=== PATIENT | male | born 1935 | race Caucasian/White ===

== ENCOUNTER 2016-05-20 14:14 | Observation (INO) | payer MEDICARE, OTHER ==
[~2016-05-20] VITALS: Ht 185.4 cm; Wt 106.8 kg
[2016-05-20 15:03] LABS: BASOPHILS 0.3 % (0.0-2.0); EOSINOPHILS 1.1 % (0-7); HEMATOCRIT 36.8 % (42.0-54.0); HEMOGLOBIN 12.1 g/dL (13.5-17.5); IMMATURE GRANULOCYTES 0.1 % (0-5); LYMPHOCYTES 11.4 % (15-50); MCH 30.8 pg (26.0-34.0); MCHC 32.9 g/dL (31.0-37.0); MCV 93.6 fL (80.0-100.0); MEAN PLATELET VOLUME 10.8 fL (7.4-10.4); MONOCYTES 11.7 % (2-11); NEUTROPHILS 75.4 % (40-80); PLATELET COUNT 186 10x3/uL (130-400); RBC 3.93 10x6/uL (4.20-6.10); RDW 13.8 % (11.5-14.5); WBC 9.5 10x3/uL (4.8-10.8)
[2016-05-20 15:10] LABS: APTT 40.4 SECONDS (22.8-39.4); INR 1.58 (0.85-1.17); PROTIME 18.8 SECONDS (11.6-15.0)
[2016-05-20 15:14] LABS: ALBUMIN 3.1 g/dL (3.4-5.0); ALKALINE PHOSPHATASE 53 U/L (46-116); ALT (SGPT) 24 U/L (10-68); BILIRUBIN - TOTAL 0.65 mg/dL (0.2-1.3); CALC OSMOLALITY 277 mosm/kg (275-300); CALCIUM 8.6 mg/dL (8.5-10.1); CARBON DIOXIDE 31.5 mmol/L (21.0-32.0); CHLORIDE - SERUM 101 mmol/L (98-107); CREATININE - SERUM 0.9 mg/dL (0.6-1.3); GLUCOSE 105 mg/dL (74-106); POTASSIUM - SERUM 4.2 mmol/L (3.5-5.1); PROTEIN - SERUM 6.4 g/dL (6.4-8.2); SODIUM 139 mmol/L (136-145); UREA NITROGEN 12 mg/dL (7-18); eGFR NON AFRICAN AMERICAN 87 mL/min (90-120)
[2016-05-20 15:22] LABS: PRO BNP 858 pg/mL (0-450)
[2016-05-20] MEDS ORDERED: COUMADIN5 MG PO (16:44)
[2016-05-20] MEDS ORDERED: SYNTHROID88 MCG (16:44)
[2016-05-20] MEDS ORDERED: CARDURA4 MG (16:45)
[2016-05-20] MEDS ORDERED: LOPRESSOR25 MG PO ×2 (16:46→16:47)
[2016-05-20] MEDS ORDERED: BAYER CHEWABLE81 MG PO (16:48)
[2016-05-20] MEDS ORDERED: OMEPRAZOLE20 M1 PO (16:49)
[2016-05-20] MEDS ORDERED: MYSOLINE 50 MG50 MG PO ×2 (16:50→16:51)
[2016-05-20] MEDS ORDERED: XALATAN 0.0052.5 ML RIGHT EYE (16:52)
[2016-05-20] MEDS ORDERED: LEVO-T88 MCG PO (16:54)
[2016-05-20] MEDS ORDERED: CARDURA4 MG PO (16:55)
--- NOTE | 2016-05-20 17:00 | NUR ---
ADMITTED TO ROOM 2223 VIA CART FROM ER S/O C/C OF A FIB RVR.PT HAD LEFT TOTAL KNEE IN [place] INCISION CLEAN AND DRY LARRY IN TACT.PLAN OF CARE GONE OVER WITH PT DEMONSTRATES UNDERSTANDING.SCD'S IN PLACE AT PRESENT.
[2016-05-20 17:32] VITALS: BP 149/95
[2016-05-20 17:34] VITALS: BP 149/95; Ht 185.4 cm; Wt 106.8 kg
--- NOTE | 2016-05-20 18:00 | NUR ---
DSG CHG DONE TO LEFT KNEE PER PT'S REQ IRMA WELL AT PRESENT.
--- NOTE | 2016-05-20 18:31 | NUR ---
LOPRESSER 5MG SLOW IVP FOR HR OF 134 DOWN TO 105 NOW.
[2016-05-20 20:00] VITALS: BP 110/71
--- NOTE | 2016-05-20 20:00 | NUR ---
PATIENT RESTING IN SEMI-FOWLERS POSITION. BROUGHT PATIENT ICECREAM PER HIS REQUEST. NO VISUAL SIGNS OF DISTRESS. PATIENT'S BED IN LOWEST POSITION AND CALL LIGHT WITHIN REACH.
[2016-05-21] VITALS: BP 142/82
[2016-05-21 04:00] VITALS: BP 129/76
[2016-05-21 05:26] LABS: BASOPHILS 0.4 % (0.0-2.0); EOSINOPHILS 3.9 % (0-7); HEMATOCRIT 33.5 % (42.0-54.0); HEMOGLOBIN 10.9 g/dL (13.5-17.5); IMMATURE GRANULOCYTES 0.4 % (0-5); LYMPHOCYTES 15.4 % (15-50); MCH 30.4 pg (26.0-34.0); MCHC 32.5 g/dL (31.0-37.0); MCV 93.6 fL (80.0-100.0); MEAN PLATELET VOLUME 11.2 fL (7.4-10.4); MONOCYTES 11.2 % (2-11); NEUTROPHILS 68.7 % (40-80); PLATELET COUNT 188 10x3/uL (130-400); RBC 3.58 10x6/uL (4.20-6.10); RDW 14.1 % (11.5-14.5); WBC 7.7 10x3/uL (4.8-10.8)
[2016-05-21 05:36] LABS: CALC OSMOLALITY 281 mosm/kg (275-300); CALCIUM 8.5 mg/dL (8.5-10.1); CARBON DIOXIDE 29.5 mmol/L (21.0-32.0); CHLORIDE - SERUM 104 mmol/L (98-107); CREATININE - SERUM 0.8 mg/dL (0.6-1.3); GLUCOSE 111 mg/dL (74-106); POTASSIUM - SERUM 4.4 mmol/L (3.5-5.1); SODIUM 141 mmol/L (136-145); UREA NITROGEN 13 mg/dL (7-18); eGFR NON AFRICAN AMERICAN > 90 mL/min (90-120)
[2016-05-21 05:45] LABS: INR 1.5 (0.85-1.17); PROTIME 18.1 SECONDS (11.6-15.0)
--- NOTE | 2016-05-21 07:30 | NUR ---
AWAKE ALERT COLOR ADQ SKIN WARM AND RESP EVEN AND UNLABORED AT PRESENT DSG INTACT TO LEFT KNEE .S/L PATENT IN LFA AT PRESENT.
[2016-05-21 08:03] VITALS: BP 139/80
--- NOTE | 2016-05-21 09:00 | NUR ---
MEDS GIVEN IRMA WELL AT PRESENT DENIES ANY NEEDS
--- NOTE | 2016-05-21 09:08 | NUR ---
REHAB PRESCREENING Rehab referral received and chart reviewed. PT evaluation has been ordered. Rehab will continue to follow this patient. Thank you for this referral! Holly Cha, ASSOCIATE FINANCIAL ANALYST/[facility]
[2016-05-21 11:11] VITALS: BP 116/62
--- NOTE | 2016-05-21 12:31 | NUR ---
PT REMAINS UP IN CHAIR AT PRESENT.
--- NOTE | 2016-05-21 13:03 | NUR ---
AMB SHORT DISTANCE WITH PT IRMA WELL AT PRESENT DSG CONT TO LEFT KNEE AT PRESENT.
--- NOTE | 2016-05-21 15:00 | NUR ---
QUIET IN ROOM N/C VOICED AT PRESENT.
--- NOTE | 2016-05-21 18:03 | NUR ---
STATUS REMAINS UNCHGD AT PRESENT.
--- NOTE | 2016-05-21 19:15 | NUR ---
RECIEVED SHIFT REPORT. PT IS LYING IN BED. ALERT AND ORIENTED AND ABLE TO VERBALIZE NEEDS. IV IS PATENT AND SALINE LOC AT THIS TIME. CPM ON AT THIS TIME. SCD'S ON. PT HAS BEEN UP WITH PHYSICAL THERAPY. PT DENIES ANY PAIN AT THIS TIME. NO NEEDS ARE VERBALIZED AT THIS TIME. WILL CONTINUE TO MONITOR. SIDE RAILS ARE UP X 2. BED IS IN LOWEST POSITION. CALL LIGHT IS WITHIN REACH.
[2016-05-21 20:00] VITALS: BP 148/79
--- NOTE | 2016-05-21 21:18 | NUR ---
SHIFT ASSESSMENT COMPLETED. NIGHT MEDS GIVEN WITH NO PROBLEMS. EYE DROPS NOT GIVEN DUE TO PT STATING THAT HE HAD USED HIS EARLIER THAT HIS HAD WITH HER. NO NEEDS ARE VOICED. WILL MONITOR. SIDE RAILS X 2. BED LOW. CALL LIGHT IN REACH.
[2016-05-22 05:00] VITALS: BP 135/88
[2016-05-22 05:43] LABS: BASOPHILS 0.6 % (0.0-2.0); EOSINOPHILS 4.8 % (0-7); HEMATOCRIT 36.1 % (42.0-54.0); HEMOGLOBIN 11.6 g/dL (13.5-17.5); IMMATURE GRANULOCYTES 0.3 % (0-5); LYMPHOCYTES 17.6 % (15-50); MCH 30.5 pg (26.0-34.0); MCHC 32.1 g/dL (31.0-37.0); MONOCYTES 10.2 % (2-11); NEUTROPHILS 66.5 % (40-80); PLATELET COUNT 223 10x3/uL (130-400); RDW 13.9 % (11.5-14.5); WBC 7.9 10x3/uL (4.8-10.8)
[2016-05-22 06:08] LABS: PROTIME 22.7 SECONDS (11.6-15.0)
[2016-05-22 06:11] LABS: CALC OSMOLALITY 281 mosm/kg (275-300); CALCIUM 8.8 mg/dL (8.5-10.1); CARBON DIOXIDE 31.3 mmol/L (21.0-32.0); CHLORIDE - SERUM 103 mmol/L (98-107); CREATININE - SERUM 0.9 mg/dL (0.6-1.3); GLUCOSE 101 mg/dL (74-106); POTASSIUM - SERUM 3.9 mmol/L (3.5-5.1); SODIUM 141 mmol/L (136-145); UREA NITROGEN 15 mg/dL (7-18); eGFR NON AFRICAN AMERICAN 87 mL/min (90-120)
--- NOTE | 2016-05-22 07:30 | NUR ---
AWAKE ALERT WAITING IN ROOM FOR PT TO GET UP AT PRESENT DENIES ANY NEEDS AT PRESENT DSG IN TACT TO LEFT KNEE AT PRESENT.
--- NOTE | 2016-05-22 09:00 | NUR ---
MEDS GIVEN IRMA WELL AT PRESENT N/C AT PRESENT.
[2016-05-22 09:12] VITALS: BP 144/81
--- NOTE | 2016-05-22 10:00 | NUR ---
AMB IN [place] WITH PT IRMA WELL AT PRESENT.
--- NOTE | 2016-05-22 10:15 | NUR ---
Patient Name: BENJI LAWSON Admission Status: ER Accout number: [id number] Admission Date: 05-20-2016 : 1937 Admission Diagnosis: Attending: CHAPIS Current LOS: 2 Anticipated DC Date: 05-23-2016 Planned Disposition: Inpatient Rehab Primary Insurance: MEDICARE A & B Discharge Planning Comments: CM MET WITH PATIENT REGARDING D/C NEEDS AND PLANS. PATIENT STATED HE LIVES WITH HIS ZULMA AND THEY HAVE ONE STEP TO ENTER THERE HOME AND NO STAIRS INSIDE. PATIENT STATED HE RECENTLY HAD SURGERY AT [place] ON HIS KNEE AND BECAME SO WEAK AT HOME HE HAD TO COME TO HOSPITAL. PATIENT STATED HE IS INDEPENDENT WITH HIS CARE AND HAS A WALKER AND CPM MACHINE AT HOME. PATIENT WAS SET UP WITH [facility] BUT WAS ADMITTED TO HOSPITAL BEFORE THEY SAW HIM. PATIENTS PCP IS DR. CLEVELAND AT [facility] AND USES [facility] AT THE [facility]. THERE IS AN IP REHAB REFERRAL IN FOR PATIENT. CM SPOKE WITH IP REHAB ([facility]) AND THEY WILL LET CM KNOW IF PATIENT WILL BE ACCEPTED OR NOT. CM WILL CONTINUE TO FOLLOW PATIENT WITH D/C NEEDS AND PLANS. PCP DR. CELVELAND ([facility]) [facility] ([facility]) [phone] ZUL[place] ([place]) [phone] Humidifier Operator: Opal Burnett Is the patient Alert and Oriented? Yes 0 * How many steps to enter\exit or inside your home? 1 0 * PCP DR. CLEVELAND IN [facility] 0 * Pharmacy [facility] 0 * Preadmission Environment Home with Family 0 * ADLs Independent 0 * Equipment Walker 0 * List name and contact numbers for known caregivers / representatives who currently or will assist patient after discharge: ZULMA [phone] 0 * Community resources currently utilized None 0 * Additional services required to return to the preadmission environment? Yes 0 * Can the patient safely return to the preadmission environment? Yes 0 * Has this patient been hospitalized within the prior 30 days at any hospital? Yes 0 Grand Total: 0
--- NOTE | 2016-05-22 12:09 | NUR ---
UP IN CHAIR AT PRESENT WITH PT AT PRESENT.
[2016-05-22 12:59] VITALS: BP 152/64
--- NOTE | 2016-05-22 14:00 | NUR ---
QUIET IN ROOM N/C VOICED AT PRESENT.
[2016-05-22] MEDS ORDERED: LOPRESSOR25 MG PO (14:07)
[2016-05-22] MEDS ORDERED: BETAPACE 80 MG80 MG PO (14:07)
[2016-05-22] MEDS ORDERED: PROTONIX40 MG PO (14:08)
--- NOTE | 2016-05-22 15:32 | NUR ---
CM REASSESSMENT NOTE; PATIENT HAS BEEN ACCEPTED TO IP REHAB. CM CALLED DR. BOND AND HE STATED HE COULD DISCHARGE TO IP REHAB TODAY AND TO CONTINUE ALL MEDS AND CONTINUE TELEMETRY FOR 1 MORE DAY. PATIENTS FAMILY AWARE OF IP REHAB.
--- NOTE | 2016-05-22 16:00 | NUR ---
QUIET IN ROOM AT PRESENT N/C .
--- NOTE | 2016-05-22 17:45 | NUR ---
REPORT CALLED TO [facility].DSG CHGD TO LEFT KNEE DONE IRMA WELL AT PRESENT.
--- NOTE | 2016-05-22 17:48 | NUR ---
PT TO BE MOVED TO REHAB 114B VIA W/C.
--- NOTE | 2016-05-22 18:24 | NUR ---
TO REHAB VIA W/C.
--- NOTE | 2016-05-22 18:27 | NUR ---
LARGE BRUISED AREA NOTED UPPER THIGH LEFT BACK.
--- NOTE | 2016-05-23 15:27 | EC ---
PATIENT:BENJI LAWSON DATE OF SERVICE: 05/20/16 SEX: M MEDICAL RECORD: [id number] DATE OF : [birth year] LOCATION:D[facility] AGE OF PATIENT: 80 ADMISSION DATE: 05/20/16 REFERRING PHYSICIAN: INTERPRETING PHYSICIAN: TRISHA ESTRADA M.D. ECHOCARDIOGRAM REPORT ECHO CHARGES 4 ECHO COMPLETE CLINICAL DIAGNOSIS: A-FIB ECHOCARDIOGRAPHIC MEASUREMENTS (adult normal given) AC root (d.<3.7cm) 3.4 LV Septum d (<1.2 cm> 1.4 Valve Excursion 1.9 LV Septum (systole) 1.9 Left Atria (s.<4.0cm> 3.3 LVPW d(<1.2cm) 1.3 RV (d.<2.3cm) 2.8 LVPW (sytole) 2.0 LV diastole(<5.6CM) 6.5 MV E-F(>70mm/sec) LV systole 4.6 LVOT Diameter 2.0 MV exc.(>10mm) Est.ejection fraction (50-75%) Pericardial Effusion N DOPPLER: LVIT A E 94.0 LA RVSP 39.0 LVOT 111 AOP1/2T Asc. Ao 158 RVOT 65.0 RA PA 53.0 AV Gradient Peak 9.9 AV Mean 5.8 AV Area 2.2 MV Gradient Peak 7.8 MV Mean 2.2 MV Area COMMENTS: Four H Agent: Miracle SHORTOE Student:Pan Estrada TAPE# PACS DATE OF SERVICE: 05/21/2016 REFERRING PHYSICIAN: Diamante Briceño MD INDICATION: AFib. DESCRIPTION: Left ventricle is mildly dilated. There is mild LV dysfunction noted. Estimated ejection fraction is in the order of 40%. Mitral valve appears structurally normal. There is moderate regurgitation noted. Left atrium is normal in size. The aortic valve is trileaflet. There is mild ECHOCARDIOGRAM REPORT [id number] BENJI LAWSON insufficiency seen, but no evidence of stenosis. Right ventricle is mildly dilated. Tricuspid valve is structurally normal. There is mild regurgitation seen. Right ventricular systolic pressure is elevated at 39 mmHg. There is no pericardial effusion noted. IMPRESSION: 1. Mildly dilated left ventricle with mild left ventricular dysfunction with ejection fraction of 40%. 2. Moderate mitral regurgitation. 3. Mild aortic insufficiency. 4. Mild tricuspid regurgitation with elevated pulmonary pressures. TRANSINT:[id number] Voice Confirmation ID: [id number] DOCUMENT ID: [id number] TRISHA ESTRADA M.D. at 1527 CC: [id number] DICTATION DATE: 05/22/1631 PERCUSSION INSTRUMENT TUNER: 05/22/16 0934 DIS IN 05/22/16 [place] [id number] [place] [id number]
== END 2016-05-22 18:28 ==
LOC: D.ER 14:14 → D.MS 15:51 → OBSVTIME 15:51 → D.MS 15:51
PROVIDERS: Family Medicine; ADMIT Emergency Medicine
DX: I48.0 Paroxysmal atrial fibrillation (principal); Z79.01 Long term (current) use of anticoagulants; I10 Essential (primary) hypertension; D62 Acute posthemorrhagic anemia; E03.9 Hypothyroidism, unspecified

== ENCOUNTER 2016-05-22 16:59 | Inpatient (IN) | payer MEDICARE, OTHER ==
[~2016-05-22] VITALS: Ht 185.4 cm; Wt 106.6 kg
[~2016-05-22 16:59] MED LIST: BAYER CHEWABLE81 MG PO; BETAPACE 80 MG80 MG PO; CARDURA4 MG; CARDURA4 MG PO; COUMADIN5 MG PO; LEVO-T88 MCG PO; LOPRESSOR25 MG PO; MYSOLINE 50 MG50 MG PO; OMEPRAZOLE20 M1 PO; PROTONIX40 MG PO; SYNTHROID88 MCG; XALATAN 0.0052.5 ML RIGHT EYE
--- NOTE | 2016-05-22 18:15 | NUR ---
PT ARRIVED TO REHAB VITALS STABLE PT ORIENTED TO ROOM CALL LIGHT IN REACH WILL MONITER
--- NOTE | 2016-05-22 19:35 | NUR ---
PT. IN BED WITH HOB UP FOR COMFORT WATCHING TV. PT DENIES ANY NEEDS AT THIS TIME. CALL LIGHT WITHIN REACH.
[2016-05-22 21:52] VITALS: BP 154/75; BMI 31.0
[2016-05-22 22:47] VITALS: BP 154/75
--- NOTE | 2016-05-22 23:00 | NUR ---
PT. CALLED AND REPORTED HE FELT SOMETHING LIQUID ON HIS LEFT BUTTOCK WHERE HIS BLISTERS ARE LOCATED. LOG ROLLED PT. ONTO HIS RIGHT SIDE AND APPLIED OPSITE TO BOTH AREAS OF BLISTERS, THEN LOG ROLLED PT. BACK ONTO HIS BACK FOR POSITION OF COMFORT. CALL LIGHT WITHIN REACH.
--- NOTE | 2016-05-23 01:00 | NUR ---
PT. IN BED WITH HOB UP AND EYES ARE CLOSED AND RESP. ARE EVEN. CALL LIGHT WITHIN REACH.
--- NOTE | 2016-05-23 03:03 | NUR ---
PT. IN BED WITH HOB UP FOR COMFORT WITH EYES CLOSED AND RESP. EVEN. CALL LIGHT WITHIN REACH.
--- NOTE | 2016-05-23 05:12 | NUR ---
PT. IN BED AND IS AWAKE AND REQUESTING COFFEE WITH YELLOW SWEETNER. OBTAINED COFFER AND SWEETNER AND PT. HAPPY TO GET HIS COFFER EARLY THIS MORNING. URINAL EMPTIED AND RECORDED. CALL LIGHT WITHIN REACH.
[2016-05-23 06:31] LABS: BASOPHILS 0.5 % (0.0-2.0); HEMATOCRIT 35.2 % (42.0-54.0); HEMOGLOBIN 11.7 g/dL (13.5-17.5); IMMATURE GRANULOCYTES 0.4 % (0-5); LYMPHOCYTES 16.9 % (15-50); MCH 30.8 pg (26.0-34.0); MCHC 33.2 g/dL (31.0-37.0); MEAN PLATELET VOLUME 10.2 fL (7.4-10.4); MONOCYTES 9.6 % (2-11); NEUTROPHILS 68.6 % (40-80); PLATELET COUNT 232 10x3/uL (130-400); RDW 13.8 % (11.5-14.5); WBC 7.8 10x3/uL (4.8-10.8)
[2016-05-23 06:32] LABS: MCV 92.6 fL (80.0-100.0)
[2016-05-23 06:39] LABS: CALC OSMOLALITY 274 mosm/kg (275-300); CALCIUM 8.6 mg/dL (8.5-10.1); CARBON DIOXIDE 28.9 mmol/L (21.0-32.0); CHLORIDE - SERUM 102 mmol/L (98-107); CREATININE - SERUM 0.9 mg/dL (0.6-1.3); GLUCOSE 104 mg/dL (74-106); POTASSIUM - SERUM 3.9 mmol/L (3.5-5.1); SODIUM 137 mmol/L (136-145); UREA NITROGEN 16 mg/dL (7-18); eGFR NON AFRICAN AMERICAN 87 mL/min (90-120)
[2016-05-23 06:46] LABS: INR 2.23 (0.85-1.17); PROTIME 24.8 SECONDS (11.6-15.0)
--- NOTE | 2016-05-23 09:38 | NUR ---
SITTING IN W/C IN ROOM. LLE ELEVATED IN W/C. HAS SHOWER WITH O.T. THIS AM.
[2016-05-23 09:42] VITALS: Ht 185.4 cm; Wt 106.6 kg
[2016-05-23 09:43] VITALS: BP 130/64
--- NOTE | 2016-05-23 12:29 | NUR ---
SITTING UP IN BED EATING LUNCH. HAS VISITOR AT BEDSIDE.
[2016-05-23 19:15] VITALS: BP 117/66
--- NOTE | 2016-05-23 19:30 | NUR ---
D/C PT'S SALINE LOCK AT HIS RIGHT FOREARM, CATH. TIP INTACT. PT TOLERATED PROCEDURE W/O ANY COMPLAINTS.
--- NOTE | 2016-05-23 19:45 | NUR ---
PT. IN BED WITH HOB UP FOR COMFORT AND IS WATCHING TV. NO VOICED COMPLAINTS AT THIS TIME AND CALL LIGHT WITHIN REACH. URINAL EMPTIED AND RECORDED.
--- NOTE | 2016-05-23 19:48 | NUR ---
PT. IN BED WITH HOB UP FOR COMFORT. CONTINUES TO USE ICE PACK TO LEFT KNEE. HAS NO VOICED NEEDS AT THIS TIME AND HAS HIS CALL LIGHT WITHIN REACH.
--- NOTE | 2016-05-23 20:10 | NUR ---
WOUND CARE TO PT'S LEFT KNEE PERFORMED. PER ASEPTIC TECHNIQUE REMOVED OLD DRESSING. CLEANSED INCISION LINE WITH WOUND CLEANSER, PATTED DRY WITH 4X4S AND APPLIED [place] DRESSING. LARRY C/D/I AND NO S/S INFECTION OBSERVED. PT. TOLERATED PROCEDURE WITOUT ANY COMPLAINTS.
--- NOTE | 2016-05-23 23:36 | NUR ---
PT IN BED HOB UP FOR COMFORT, EYES CLOSED, CHEST RISING AND FALLING, RESPIRATIONS EVEN, NO SIGNS OF DISTRESS NOTED, CALL LIGHT WITHIN REACH.
[2016-05-24 06:14] LABS: INR 2.5 (0.85-1.17); PROTIME 27.1 SECONDS (11.6-15.0)
--- NOTE | 2016-05-24 06:28 | NUR ---
PT IN BED HOB UP FOR COMFORT, WATCHING TV, NO COMPLAINTS AT THIS TIME, BED IN LOWEST POSITION, CALL LIGHT WITHIN REACH.
--- NOTE | 2016-05-24 07:30 | NUR ---
PATIENT RECEIVED LYING IN BED WATCHING TV. RESPIRATIONS UNLABORED AND EVEN. CALL LIGHT AND BEDSIDE TABLE WITHIN REACH. PATIENT DENIES ANY CONCERNS AT THIS TIME.
[2016-05-24 08:00] VITALS: BP 130/70
--- NOTE | 2016-05-24 16:49 | NUR ---
CARE TEAM MEETING: PATIENT WILL BE RA AT NEXT MEETING SCHEDULED 05/31/16. PCP IS DR. CLEVELAND ([facility]), HE HAS WALKER AND CPM AT HOME. USES [facility] ([facility]). WILL CONTINUE TO FOLLOW WITH PATIENT UNTIL DISCHARGED
--- NOTE | 2016-05-24 16:53 | NUR ---
PT. OBSERVED LYING IN BED WATCHING TV. PT. DENIES ANY REQUESTS/CONCERNS AT THIS TIME. CALL LIGHT AND BEDSIDE TABLE WITHIN REACH.
--- NOTE | 2016-05-24 18:41 | NUR ---
PT. OBSERVED LYING IN BED WATCHING TV. PATIENT DENIES ANY NEEDS AT THIS TIME. CALL LIGHT AND BEDSIDE TABLE WITHIN REACH. BED IN LOWEST POSITION.
--- NOTE | 2016-05-24 19:35 | NUR ---
PT IN BED WATCHING TV. NO CONCERNS MADE KNOWN AT THIS TIME. WATER AND CALL LIGHT IN REACH.
[2016-05-25 00:22] VITALS: BP 140/59
--- NOTE | 2016-05-25 01:08 | NUR ---
PT IN BED WITH EYES CLOSED AND CHEST RISING. RESPIRATIONS EVEN AND UNLABORED. NO SIGN/SYMPTOMS OF DISTRESS NOTED. WATER AND CALL LIGHT IN REACH.
--- NOTE | 2016-05-25 05:27 | NUR ---
PT IN BED WITH EYES CLOSED AND CHEST RISING. RESPIRATIONS EVEN AND UNLABORED. NO CONCERNS NOTED AT THIS TIME. WATER AND CALL LIGHT IN REACH.
[2016-05-25 07:16] LABS: BASOPHILS 0.5 % (0.0-2.0); EOSINOPHILS 3.2 % (0-7); HEMATOCRIT 35.2 % (42.0-54.0); HEMOGLOBIN 11.6 g/dL (13.5-17.5); IMMATURE GRANULOCYTES 0.2 % (0-5); LYMPHOCYTES 15.2 % (15-50); MCH 30.6 pg (26.0-34.0); MCV 92.9 fL (80.0-100.0); MEAN PLATELET VOLUME 10.4 fL (7.4-10.4); MONOCYTES 8.6 % (2-11); NEUTROPHILS 72.3 % (40-80); RBC 3.79 10x6/uL (4.20-6.10); RDW 13.9 % (11.5-14.5); WBC 8.4 10x3/uL (4.8-10.8)
[2016-05-25 07:18] LABS: PLATELET COUNT 283 10x3/uL (130-400)
[2016-05-25 07:33] LABS: CALC OSMOLALITY 278 mosm/kg (275-300); CALCIUM 8.2 mg/dL (8.5-10.1); CARBON DIOXIDE 29.5 mmol/L (21.0-32.0); CHLORIDE - SERUM 104 mmol/L (98-107); CREATININE - SERUM 0.8 mg/dL (0.6-1.3); GLUCOSE 97 mg/dL (74-106); POTASSIUM - SERUM 4.1 mmol/L (3.5-5.1); SODIUM 139 mmol/L (136-145); UREA NITROGEN 16 mg/dL (7-18); eGFR NON AFRICAN AMERICAN > 90 mL/min (90-120)
[2016-05-25 07:59] LABS: INR 2.67 (0.85-1.17); PROTIME 28.6 SECONDS (11.6-15.0)
[2016-05-25 08:02] VITALS: BP 124/73
--- NOTE | 2016-05-25 13:40 | NUR ---
SITTING UP IN W/C IN ROOM. IS VISITING. DENIES NEEDS
--- NOTE | 2016-05-25 17:49 | NUR ---
EATING SUPPER SITTING IN BED. DENIES NEEDS
--- NOTE | 2016-05-25 19:20 | NUR ---
PT IN BED WITH EYES OPEN AND WATCHING TV. NO NEEDS MADE KNOWN AT THIS TIME. WATER AND CALL LIGHT IN REACH.
[2016-05-25 20:45] VITALS: BP 141/82
--- NOTE | 2016-05-25 21:30 | NUR ---
PT IN BED WIT EYES OPEN AND WATCHING TV. NO CONCERNS NOTED. WARM WET WASHCLOTH GIVEN PER REQUEST TO WASH FACE AND URINAL EMPTIED. WATER AND CALL LIGHT IN REACH.
--- NOTE | 2016-05-25 23:51 | NUR ---
PT IN BED WITH EYES CLOSED AND CHEST RISING. RESPIRATIONS EVEN AND UNLABORED. NO CONCERNS NOTED AT THIS TIME. WATER AND CALL LIGHT IN REACH.
--- NOTE | 2016-05-26 04:04 | NUR ---
PT IN BED WITH EYES CLOSED AND CHEST RISING. RESPIRATIONS EVEN AND UNLABORED. URINAL EMPTIED PER REQUEST. NO OTHER NEEDS MADE KNOWN. CALL LIGHT IN REACH.
[2016-05-26 05:55] LABS: BASOPHILS 0.5 % (0.0-2.0); HEMATOCRIT 35.5 % (42.0-54.0); HEMOGLOBIN 11.5 g/dL (13.5-17.5); IMMATURE GRANULOCYTES 0.5 % (0-5); LYMPHOCYTES 14.9 % (15-50); MCH 30.2 pg (26.0-34.0); MCHC 32.4 g/dL (31.0-37.0); MCV 93.2 fL (80.0-100.0); MEAN PLATELET VOLUME 9.8 fL (7.4-10.4); MONOCYTES 9.1 % (2-11); PLATELET COUNT 293 10x3/uL (130-400); RBC 3.81 10x6/uL (4.20-6.10); RDW 14.1 % (11.5-14.5); WBC 8.2 10x3/uL (4.8-10.8)
[2016-05-26 06:06] LABS: CALC OSMOLALITY 280 mosm/kg (275-300); CALCIUM 8.5 mg/dL (8.5-10.1); CARBON DIOXIDE 32.3 mmol/L (21.0-32.0); CHLORIDE - SERUM 104 mmol/L (98-107); CREATININE - SERUM 0.9 mg/dL (0.6-1.3); GLUCOSE 97 mg/dL (74-106); SODIUM 140 mmol/L (136-145); UREA NITROGEN 17 mg/dL (7-18); eGFR NON AFRICAN AMERICAN 87 mL/min (90-120)
[2016-05-26 06:12] LABS: INR 3.63 (0.85-1.17); PROTIME 36.6 SECONDS (11.6-15.0)
--- NOTE | 2016-05-26 06:37 | NUR ---
PT IN BED WITH EYES OPEN WATCHING TV. NO NEEDS MADE KNOWN AT THIS TIME. CALL LIGHT IN REACH.
--- NOTE | 2016-05-26 07:36 | NUR ---
PT RESTING IN BED WITH EYES OPEN CALL LIGHT IN REACH NO PROBLEMS WILL MONITER
[2016-05-26 07:54] VITALS: BP 134/66
--- NOTE | 2016-05-26 10:44 | RHP ---
PATIENT: BENJI LAWSON MEDICAL RECORD: [id number] ACCOUNT: [id number] LOCATION:[facility]1114 : 37 ADMISSION DATE: 05/22/16 REHABILITATION HISTORY AND PHYSICAL EXAMINATION POST ADMISSION PHYSICIAN EXAMINATION Post-Admission Physical Exam and History and Physical DATE OF ADMISSION TO THE REHAB: 05/22/2016 ADMITTING DIAGNOSES: Status post left total knee arthroscopy with some postop complications, acute atrial fibrillation with rapid ventricular response and acute blood loss anemia. HISTORY OF PRESENT ILLNESS: The patient is admitted to inpatient rehab status post left total knee replacement and postop complications of acute atrial fibrillation with rapid ventricular response and acute blood loss anemia. He is a 80-year-old gentleman who had a left total knee last Sunday at [facility] for which discharged home on May 19. After return to home, he developed some nausea and vomiting. His is debilitated with MS and has limited upper body strength and is his primary caregiver. He was completely independent with all ADLs and mobility prior to his left total knee and plans to return to his prior level of functioning where he is actually his 's primary caregiver. He attempted to assist his to the bathroom and they almost fell. Once into the bathroom, the patient stated that he sat down and was too weak to get up and had to call the police, which called EMS to assist him up off the floor. On May 20, the patient did not feel any better; therefore, he called EMS and was brought to [facility] was found to be in atrial fibrillation with rapid ventricular response and noted to have an acute blood loss anemia. The patient was seen by cardiology and has had an echo done while here in the acute hospitalist he has had some medication changes, increased to control with AFib and increased heart rate. He is doing somewhat better, but definitely need this inpatient rehab to get back to his prior level of function and be able to take care of his at home. COMORBIDITIES: Include paroxysmal atrial fibrillation with rapid ventricular response, blood loss anemia, hypothyroidism, chronic hypertension, status post left TKA, falls, arrhythmias, anemia, shortness of breath, dizziness, dehydration, electrolyte imbalance, fluid overload, infection and impaired skin integrity. PAST MEDICAL HISTORY: Significant for hypertension, atrial fib. PAST SURGICAL HISTORY: Includes appendectomy, tonsillectomy and adenoidectomy, TURP, vasectomy, BPH surgery, and recent left total knee. ALLERGIES: No known drug allergies. CURRENT MEDICATIONS: Include Coumadin 5 mg daily, primidone 50 mg in the morning. He is on Protonix 40 mg daily, Synthroid 88 mcg daily, aspirin 325 mg daily, sotalol 80 mg b.i.d., primidone 25 mg in the p.m. He is on metoprolol 25 mg b.i.d., Xalatan eye drops, Cardura 4 mg at bedtime, and polyethylene glycol 17 grams in 8 ounces of water daily. HABITS: No current alcohol or tobacco use. HISTORY AND PHYSICAL [id number] BENJI LAWSON FAMILY HISTORY: Noncontributory. SOCIAL HISTORY: The patient hopes to return back at [place] and be able to take care of his . REVIEW OF SYSTEMS: GENERAL: Does complain a little weakness and fatigue. HEENT: Denies cold, cough, or congestion. CARDIOVASCULAR: Denies chest pain. PHYSICAL EXAMINATION: VITAL SIGNS: Stable, afebrile. GENERAL: Elderly gentleman in no acute distress, alert upon exam. HEENT: Normocephalic, atraumatic. Mucosa moist. NECK: Supple. No lymphadenopathy. LUNGS: Clear at this time. HEART: Regular rate and rhythm. ABDOMEN: Benign. EXTREMITIES: Consistent with knee replacement. NEUROLOGIC: Intact. LABORATORY DATA: His white count is 7.8, H&H of 11 and 35, and platelet count was noted to be 232. His INR is 2.23. Sodium 137, potassium 3.9, BUN and creatinine of 16 and 0.9, and blood sugar was noted to be 104. ASSESSMENT: This is a 80-year-old gentleman admitted to the rehab with a working diagnosis of status post left total knee replacement with postop complications including, atrial fibrillation and blood loss anemia: The patient has potential to make improvement. We will institute the following multidisciplinary therapies including to, but not limited to physical, occupational, respiratory, speech, nutritional services, prosthetics and orthotics. Given his complex condition and risk for more complications, rehabilitation services cannot be provided at a low level of care such as a intermediate facility. PLAN: 1. Admit to [facility] rehab for intensive inpatient therapy to include the following disciplines: A. Physical therapy to improve gait, all transfer skills and bed mobility to a modified independent level. B. Occupational therapy to improve activities of daily living to a modified independent level. C. Case management to assist with discharge planning and placement options. D. Nutrition to assist with nutritional needs. E. Rehabilitation nursing to assist in monitoring the patient's underlying medical conditions and to assist with any type of bowel or bladder management. 2. The patient's current medication and medical care will be continued. 3. The patient will be placed on standard fall precautions. 4. We will go ahead and monitor his heart rate closely and also his H&H throughout his stay. 5. We will go ahead and discuss during care team staff meeting this week. TRANSINT:[id number] Voice Confirmation ID: [id number] DOCUMENT ID: [id number] HISTORY AND PHYSICAL [id number] BENJI LAWSON SCOTT MD at 1044 CC: [id number] DICTATION DATE: 05/23/16 0826 COTTON INSPECTOR: 05/23/16 1020 ADM IN [place] [id number] [place] [address]
--- NOTE | 2016-05-26 12:00 | NUR ---
PT UP IN WHEELCHAIR EATING LUNCH TOLERATING WELL WILL MONITER
--- NOTE | 2016-05-26 17:43 | NUR ---
PT RESTING IN BED EYES OPEN CALL LIGHT IN REACH WILL MONITER
--- NOTE | 2016-05-26 17:51 | NUR ---
RESTING IN BED WITH CALLIGHT IN REACH.
[2016-05-26 19:30] VITALS: BP 130/77
--- NOTE | 2016-05-26 19:30 | NUR ---
PT REQUESTED SCD'S BUT THERE IS NO MACHINE AVAILABLE.
--- NOTE | 2016-05-26 20:15 | NUR ---
WOUND CARE TO PT'S LEFT KNEE PERFORMED. PER ASEPTIC TECHNIQUE. REMOVED OLD DRESSING. CLEANSED INCISION LINE WITH WOUND CLEANSER. PATTEED DRY WITH 4X4'S AND APPLIED [place] DRESSING. LARRY C/D/I AND NO S/S OF INFECTION OBSERVED. PT TOLERATED PROCEDURE WELL WITHOUT ANY COMPLAINTS.
--- NOTE | 2016-05-27 00:20 | NUR ---
pt resting quietly, no s/s of acute distress.
--- NOTE | 2016-05-27 02:30 | NUR ---
PT IN BED HOB UP FOR COMFORT, EYES CLOSED, CHEST RISING AND FALLING, BED IN LOWEST POSITION, CALL LIGHT WITHIN REACH.
--- NOTE | 2016-05-27 06:10 | NUR ---
PT IN BED WITH HOB UP FOR COMFORT, WATCHING TV, NO COMPLAINTS AT THIS TIME, BED IN LOWEST POSITION, CALL LIGHT WITHIN REACH.
[2016-05-27 06:15] LABS: INR 2.85 (0.85-1.17); PROTIME 30.2 SECONDS (11.6-15.0)
[2016-05-27 09:35] VITALS: BP 104/59
--- NOTE | 2016-05-27 12:14 | NUR ---
SITTING UP IN W/C EATING LUNCH
--- NOTE | 2016-05-27 15:54 | NUR ---
PT HAS BEEN ON CPM MACHINE THIS AFTERNOON AND WAS TAKEN OFF. HE HAS ICE TO LEFT KNEE. DENIES INCREASED PAIN.
--- NOTE | 2016-05-27 17:48 | NUR ---
SITTING UP IN BED EATING SUPPER. CALL LIGHT IN REACH
[2016-05-27 19:47] VITALS: BP 109/66
--- NOTE | 2016-05-27 19:51 | NUR ---
PT IS RESTING IN BED WATCHING TV. ALERT AND ORIENTED X 4. DENIES ACUTE PAIN OR DISCOMFORT. VSS. CPM ON AT THIS TIME. SR'S ARE UP X 3 IN BED. CALL LIGHT AND BEDSIDE TABLE ARE WITHIN EASY REACH.
[2016-05-27 20:21] VITALS: BP 138/72
--- NOTE | 2016-05-27 21:41 | NUR ---
PT RESTING IN BED WITH EYES OPEN. NO NEEDS VOICED.
--- NOTE | 2016-05-28 00:29 | NUR ---
PT RESTING QUIETLY, RESPIRATIONS REGULAR AND UNLABORED.
--- NOTE | 2016-05-28 03:08 | NUR ---
PT IS RESTING QUIETLY IN BED WITH EYES CLOSED.
--- NOTE | 2016-05-28 06:24 | NUR ---
PT RESTING IN BED GETTING AM BLOOD DRAWN. NO NEEDS VOICED.
[2016-05-28 07:00] LABS: PROTIME 25.1 SECONDS (11.6-15.0)
--- NOTE | 2016-05-28 07:07 | NUR ---
RESTING QUIETLY IN BED. CALL LIGHT IN REACH
[2016-05-28 07:25] LABS: INR 2.26 (0.85-1.17)
--- NOTE | 2016-05-28 10:03 | NUR ---
in bed with cpm machine on lle
[2016-05-28 10:06] VITALS: BP 115/62
--- NOTE | 2016-05-28 17:35 | NUR ---
SITTING UP IN BED EATING SUPPER. HAS HAD CPM ON LLE TODAY. INCISION INTACT. PT DENIES INCREASED PAIN
[2016-05-28 19:30] VITALS: BP 160/74
--- NOTE | 2016-05-28 19:30 | NUR ---
RECEIVED PT IN BED WITH HOB UP FOR COMFORT, WATCHING TV, AND LEFT LEG IN CPM MACHINE. PT HAD NO COMPLAINTS AT THIS TIME. LEFT ROOM WITH BED IN LOWEST POSTION AND CALL LIGHT WITHIN REACH.
--- NOTE | 2016-05-28 20:15 | NUR ---
REMOVED CPM MACHINE FROM PT'S LEG, PT HAD NO PAIN OR COMPLAINTS AT THIS TIME, BED IN LOWEST POSITION AND CALL LIGHT WITHIN REACH.
--- NOTE | 2016-05-29 04:16 | NUR ---
PT RESTING, EYES CLOSED. BED LOW. CL IN REACH.
--- NOTE | 2016-05-29 04:43 | NUR ---
PT IN BED WITH HOB UP FOR COMFORT, EYES CLOSED, CHEST RISING AND FALLING, BED IN LOWEST POTION AND CALL LIGHT WITHIN REACH.
[2016-05-29 05:58] LABS: BASOPHILS 0.3 % (0.0-2.0); EOSINOPHILS 3.3 % (0-7); HEMATOCRIT 35.9 % (42.0-54.0); HEMOGLOBIN 11.5 g/dL (13.5-17.5); IMMATURE GRANULOCYTES 0.5 % (0-5); MCH 30.3 pg (26.0-34.0); MCV 94.5 fL (80.0-100.0); MEAN PLATELET VOLUME 10.6 fL (7.4-10.4); MONOCYTES 8.9 % (2-11); PLATELET COUNT 305 10x3/uL (130-400); RDW 14.2 % (11.5-14.5); WBC 7.7 10x3/uL (4.8-10.8)
[2016-05-29 06:26] LABS: INR 1.68 (0.85-1.17); PROTIME 19.7 SECONDS (11.6-15.0)
[2016-05-29 06:32] LABS: CALC OSMOLALITY 282 mosm/kg (275-300); CALCIUM 8.6 mg/dL (8.5-10.1); CARBON DIOXIDE 31.4 mmol/L (21.0-32.0); CHLORIDE - SERUM 105 mmol/L (98-107); CREATININE - SERUM 0.8 mg/dL (0.6-1.3); GLUCOSE 92 mg/dL (74-106); POTASSIUM - SERUM 4.8 mmol/L (3.5-5.1); SODIUM 142 mmol/L (136-145); UREA NITROGEN 13 mg/dL (7-18); eGFR NON AFRICAN AMERICAN > 90 mL/min (90-120)
--- NOTE | 2016-05-29 07:30 | NUR ---
PT OBSERVED LYING IN BED WATCHING TV. BED IN LOWEST POSITON. CALL LIGHT AND PERSONAL ITEMS WITHIN REACH.
--- NOTE | 2016-05-29 09:00 | NUR ---
PT. OBSERVED IN THERAPY ROOM WORKING WITH PHYSICAL THERAPY. NO COMPLAINTS AT THIS TIME.
--- NOTE | 2016-05-29 09:26 | NUR ---
RESTING QUIETLY IN BED
[2016-05-29 12:32] VITALS: BP 129/82
--- NOTE | 2016-05-29 15:55 | NUR ---
PT. OBSERVED LYING IN BED WATCHING TV. CPM MACHINE OBSERVED ON LEFT LE. PT. DENIES ANY CONCERNS AT THIS TIME. CALL LIGHT AND PERSONAL ITEMS WITHIN REACH. BED IN LOWEST POSITION.
--- NOTE | 2016-05-29 16:58 | NUR ---
PT OBSERVED LYING IN BED. ICE APPLIED TO LEFT KNEE. PT. DENIES ANY REQUESTS OR CONCERNS AT THIS TIME. CALL LIGHT AND PERSONAL ITEMS WITHIN REACH.
[2016-05-29 19:00] VITALS: BP 132/55
--- NOTE | 2016-05-29 19:00 | NUR ---
RECEIVED PT IN BED WITH HOB UP FOR COMFORT, WATCHING TV. PT HAD ON CPM MACHINE, NO DISCOMFORT OR COMPLAINTS AT THIS TIME. BED IN LOWEST POSITION AND CALL LIGHT WIHTIN REACH.
--- NOTE | 2016-05-29 21:50 | NUR ---
REMOVED CPM MACHINE FROM PT'S LEG, PT HAD NO PAIN OR COMPLAINTS AT THIS TIME, BED IN LOWEST POSITION AND CALL LIGHT WITHIN REACH.
--- NOTE | 2016-05-29 23:17 | NUR ---
PT IN BED WITH HOB UP FOR COMFORT, EYES CLOSED, CHEST RSISING AND FALLING, BED IN LOWEST POSITION AND CALL LIGHT WITHIN REACH.
--- NOTE | 2016-05-30 01:58 | NUR ---
PT RESTING IN BED, AWAKE, DENIES NEEDS AT THIS TIME. BED LOW. CL IN REACH.
[2016-05-30 06:41] LABS: INR 1.59 (0.85-1.17); PROTIME 18.9 SECONDS (11.6-15.0)
[2016-05-30 08:04] VITALS: BP 125/60
--- NOTE | 2016-05-30 09:31 | NUR ---
SITTING IN GYM IN WHEELCHAIR EXERCISING.
--- NOTE | 2016-05-30 11:30 | NUR ---
AMBULATING IN HALLWAY WITH WALKER WITHOUT ANY FALLS NOTED.
--- NOTE | 2016-05-30 12:59 | NUR ---
Nutrition Follow Up: Chart reviewed. Pt is eating 88% meal avg on a Regular diet. +BM 05/29/16. Meds and labs noted. Pt continues at low nutritional risk. RD will continue to monitor pt progress per policy.
--- NOTE | 2016-05-30 13:28 | NUR ---
RESTING IN BED WITH ICE PACK TO LT KNEE. C/O LT KNEE PAIN, PRN MED GIVEN.
--- NOTE | 2016-05-30 15:35 | NUR ---
RESTING IN BED ON THE CPM TO LT LEG.
--- NOTE | 2016-05-30 17:10 | NUR ---
RESTING IN BED WITHOUT ANY NEEDS VOICED.
--- NOTE | 2016-05-30 19:35 | NUR ---
PT IN BED WITH EYES OPEN WATCHING TV. NO CONCERNS MADE KNOWN AT THIS TIME. CALL LIGHT IN REACH.
--- NOTE | 2016-05-30 22:30 | NUR ---
PT IN BED WITH EYES OPEN SCHEDULED MEDICATIONS GIVEN PER MAR. NO COMPLAINTS OR CONCERNS NOTED. CALL LIGHT IN REACH.
[2016-05-31 00:01] VITALS: BP 120/70
--- NOTE | 2016-05-31 06:26 | NUR ---
PT IN BED WATCHING TV. NO COMPLAINTS OR CONCERNS MADE KNOWN AT THIS TIME. CALL LIGHT IN REACH.
[2016-05-31 06:49] LABS: BASOPHILS 0.4 % (0.0-2.0); EOSINOPHILS 3.6 % (0-7); HEMATOCRIT 35.6 % (42.0-54.0); HEMOGLOBIN 11.4 g/dL (13.5-17.5); IMMATURE GRANULOCYTES 0.4 % (0-5); LYMPHOCYTES 14.1 % (15-50); MCH 30.1 pg (26.0-34.0); MCV 93.9 fL (80.0-100.0); MEAN PLATELET VOLUME 9.8 fL (7.4-10.4); MONOCYTES 8.7 % (2-11); NEUTROPHILS 72.8 % (40-80); PLATELET COUNT 312 10x3/uL (130-400); RBC 3.79 10x6/uL (4.20-6.10); RDW 14.2 % (11.5-14.5); WBC 7.9 10x3/uL (4.8-10.8)
[2016-05-31 07:03] LABS: INR 1.52 (0.85-1.17); PROTIME 18.3 SECONDS (11.6-15.0)
[2016-05-31 07:05] LABS: CALC OSMOLALITY 276 mosm/kg (275-300); CALCIUM 8.7 mg/dL (8.5-10.1); CARBON DIOXIDE 30.7 mmol/L (21.0-32.0); CHLORIDE - SERUM 103 mmol/L (98-107); CREATININE - SERUM 0.9 mg/dL (0.6-1.3); GLUCOSE 98 mg/dL (74-106); POTASSIUM - SERUM 4.1 mmol/L (3.5-5.1); SODIUM 138 mmol/L (136-145); UREA NITROGEN 15 mg/dL (7-18); eGFR NON AFRICAN AMERICAN 87 mL/min (90-120)
--- NOTE | 2016-05-31 07:59 | NUR ---
PT. OBSERVED LYING IN BED. HOB AT 45 DEGRESS EATING HIS BREAKFAST. PT. DENIES ANY CONCERNS AT THIS TIME. CALL LIGHT AND PERSONAL ITEMS WITHIN REACH. BED IN LOWEST POSITION.
[2016-05-31 08:42] VITALS: BP 127/83
--- NOTE | 2016-05-31 12:00 | NUR ---
PT. OBSERVED SITTING IN WHEEL CHAIR EATING LUNCH WITH HIS . PT. DENIES ANY CONCERNS OR NEEDS AT THIS TIME. CALL LIGHT WITHIN REACH.
--- NOTE | 2016-05-31 13:56 | NUR ---
CARE TEAM MEETING: PATIENT TENATIVE DISCHARGE DATE IS 06/06/16 . WILL VISIT WITH PATIENT ABOUT DME NEEDS AND HOME HEALTH. WILL CONTIUNE TO FOLLOW WITH PATIENT UNTIL DISCHARGED.
--- NOTE | 2016-05-31 15:57 | NUR ---
PT. OBSERVED LYING IN BED WATCHING TV. CALL LIGHT AND PERSONAL ITEMS WITHIN REACH.
--- NOTE | 2016-05-31 17:45 | NUR ---
FINISHED WITH SUPPER.DENIES NEEDS.
[2016-05-31 19:00] VITALS: BP 124/76
--- NOTE | 2016-05-31 20:00 | NUR ---
PT IS RESTING IN BED WITH EYES OPEN. ALERT AND ORIENTED X 4. DENIES ACUTE DISCOMFORT AT THIS TIME. CPM ON AT THIS TIME. PT STATES HE WILL CALL WHEN HE IS READY FOR IT TO COME OFF. PT ASSISTED TO THE BATHROOM PRN. SR'S ARE UP X 2 IN BED. CALL LIGHT AND BEDSIDE TABLE ARE WITHIN EASY REACH.
--- NOTE | 2016-05-31 22:56 | NUR ---
RESTING QUIETLY IN BED WITH EYES CLOSED.
--- NOTE | 2016-06-01 01:18 | NUR ---
PT IS RESTING QUIETLY IN BED WITH EYES CLOSED.
--- NOTE | 2016-06-01 02:47 | NUR ---
PT RESTING WITH HOB ELEVATED 25 DEGREES, RESPIRATIONS REGULAR AND UNLABORED, NO S/S OF ACUTE DISTRESS.
--- NOTE | 2016-06-01 05:28 | NUR ---
PT RESTING IN BED WITH EYES CLOSED.
--- NOTE | 2016-06-01 07:25 | NUR ---
RESTING QUIETLY IN BED. CALL LIGHT IN REACH
[2016-06-01 08:15] LABS: INR 1.76 (0.85-1.17); PROTIME 20.5 SECONDS (11.6-15.0)
[2016-06-01 08:22] VITALS: BP 138/78
--- NOTE | 2016-06-01 13:28 | NUR ---
SITTING IN ROOM. DENIES NEEDS
[2016-06-01 19:00] VITALS: BP 129/72
--- NOTE | 2016-06-01 19:20 | NUR ---
RECEIVED PT IN BED WITH HOB UP FOR COMFORT, PT USING CPM MACHINE, PT STATES HE HAS A PAIN LEVEL OF 5/10 WHEN USING THE CPM MACHINE BUT STATES HE DOESN'T WANT ANY PAIN MED.'S. BED IN LOWEST POSITION AND CALL LIGHT WITHIN REACH.
--- NOTE | 2016-06-02 01:45 | NUR ---
PT IN BED, EYES CLOSED, CHEST RISING AND FALLING, BED IN LOWEST POSITION AND CALL LIGHT WITHIN REACH.
--- NOTE | 2016-06-02 03:45 | NUR ---
PT RESTING, EYES CLOSED. BED LOW. CL IN REACH.
--- NOTE | 2016-06-02 05:50 | NUR ---
PT IN BED WITH HOB UP FOR COMFORT, WATCHING TV, NO COMPLAINTS AT THIS TIME, BED IN LOWEST POSTION AND CALL LIGHT WITHIN REACH.
[2016-06-02 07:24] LABS: BASOPHILS 0.5 % (0.0-2.0); EOSINOPHILS 3.5 % (0-7); HEMATOCRIT 35.6 % (42.0-54.0); HEMOGLOBIN 11.6 g/dL (13.5-17.5); IMMATURE GRANULOCYTES 0.5 % (0-5); LYMPHOCYTES 15.1 % (15-50); MCH 30.3 pg (26.0-34.0); MCHC 32.6 g/dL (31.0-37.0); MEAN PLATELET VOLUME 10.7 fL (7.4-10.4); MONOCYTES 10.5 % (2-11); NEUTROPHILS 69.9 % (40-80); PLATELET COUNT 299 10x3/uL (130-400); RBC 3.83 10x6/uL (4.20-6.10); RDW 14.2 % (11.5-14.5); WBC 7.8 10x3/uL (4.8-10.8)
[2016-06-02 07:46] LABS: CALC OSMOLALITY 278 mosm/kg (275-300); CALCIUM 8.7 mg/dL (8.5-10.1); CARBON DIOXIDE 31.2 mmol/L (21.0-32.0); CHLORIDE - SERUM 103 mmol/L (98-107); CREATININE - SERUM 0.9 mg/dL (0.6-1.3); GLUCOSE 99 mg/dL (74-106); POTASSIUM - SERUM 4.4 mmol/L (3.5-5.1); SODIUM 139 mmol/L (136-145); UREA NITROGEN 16 mg/dL (7-18); eGFR NON AFRICAN AMERICAN 87 mL/min (90-120)
[2016-06-02 08:25] VITALS: BP 135/80
--- NOTE | 2016-06-02 09:35 | NUR ---
SITTING ON EXERCISE MACHINE AND C/O LT KNEE PAIN, PRN MED GIVEN. NO OTHER NEEDS VOICED.
--- NOTE | 2016-06-02 11:50 | NUR ---
SITTING IN BED IN THE ROOM. CALLIGHT IN REACH.
--- NOTE | 2016-06-02 13:40 | NUR ---
SITTING IN THERAPY ROOM EXERCISING. NO FALLS NOTED.
--- NOTE | 2016-06-02 15:26 | NUR ---
SITTING IN WHEELCHAIR IN GYM WORKING WITH THERAPY.
--- NOTE | 2016-06-02 17:05 | NUR ---
RESTING IN BED WATCHING TV.
[2016-06-02 19:30] VITALS: BP 121/68
--- NOTE | 2016-06-02 19:35 | NUR ---
PT IN BED WITH CPM IN USE. NO COMPLAINT OR CONCERNS NOTED AT THIS TIME. CALL LIGHT IN REACH.
--- NOTE | 2016-06-03 00:54 | NUR ---
PT IN BED WITH EYES CLOSED AND CHEST RISING. RESPIRATIONS EVEN AND UNLABORED. NO CONCERNS NOTED. CALL LIGHT IN REACH.
[2016-06-03 07:00] VITALS: BP 145/91
--- NOTE | 2016-06-03 07:19 | NUR ---
PT IN BED WATCHING TV. NO CONCERN MADE KNOWN. CALL LIGHT IN REACH.
--- NOTE | 2016-06-03 08:00 | NUR ---
PT OBSERVED LYING IN BED WATCHING TV. RESPIRATIONS EVEN AND UNLABORED. PT DENIES ANY COMPLAINTS AT THIS TIME. CALL LIGHT AND PERSONAL ITEMS WITHIN REACH. BED IN LOWEST POSITION.
--- NOTE | 2016-06-03 12:00 | NUR ---
PT OBSERVED LYING IN BED WITH HOB AT 90 DEGREES EATING LUNCH WITH HIS . PT. DENIES ANY CONCERNS AT THIS TIME. CALL LIGHT AND PERSONAL ITEMS WITHIN REACH. BED IN LOWEST POSITION.
--- NOTE | 2016-06-03 16:00 | NUR ---
PT. OBSERVED LYING IN BED WATCHING TV. RESPIRATIONS EVEN AND UNLABORED. PT DENIES ANY CONCERNS AT THIS TIME. CALL LIGHT AND PERSONAL ITEMS WITHIN REACH. BED IN LOWEST POSITION.
--- NOTE | 2016-06-03 19:30 | NUR ---
pt awake, denies pain, pt states he had a good day, emptied urinal, provided fresh water, no other needs at this time.
--- NOTE | 2016-06-04 00:46 | NUR ---
pt resting quietly, no s/s of acute distress, respirations regular and unlabored, urinal empty.
--- NOTE | 2016-06-04 02:39 | NUR ---
pt awake, states he has gotten some sleep, emptied urinal and provided warm washcloth. no other needs noted.
--- NOTE | 2016-06-04 06:51 | NUR ---
pt getting dressed, pt denies needs, pt was appreciative of fresh water, urinal emptied.
[2016-06-04 08:00] VITALS: BP 138/71
--- NOTE | 2016-06-04 08:00 | NUR ---
SHIFT ASSMT COMPLETED.BREAKFAST TRAY GIVEN.CL IN REACH.
--- NOTE | 2016-06-04 12:00 | NUR ---
denies needs.cl in reach..
--- NOTE | 2016-06-04 16:00 | NUR ---
CPM REMOVED.DENIES NEEDS.IRMA WELL.
--- NOTE | 2016-06-04 22:28 | NUR ---
PT RECEIVED IN BED WIT CPM IN USE WITH PT STATING STOP TIME WAS 2029 AND WOULD USE CALL LIGHT FOR ASSISTANCE. 2029 PT USES CALL LIGHT FOR ASSISTANCE AND REMOVED FROM CMP. MEDICATIONS ADMINISTERED. NO COMPLAINTS OR CONCERNS MADE KNOWN. CALL LIGHT IN REACH.
[2016-06-04 23:11] VITALS: BP 111/72
--- NOTE | 2016-06-05 00:54 | NUR ---
PT IN BED WITH EYES CLOSED AND CHEST RISING. RESPIRATIONS EVEN AND UNLABORED. NO CONCERNS NOTED AT THIS TIME. CALL LIGHT IN REACH.
--- NOTE | 2016-06-05 05:52 | NUR ---
PT ON SIDE OF BED GETTING UP TO USE THE BATHROOM. UP WITH WALKER WITH STEADY GAIT. SCHEDULED MEDICATIONS GIVEN PER MAR WITHOUT DIFFICULTY. NO CONCERNS MADE KNOWN. CALL LIGHT IN REACH.
[2016-06-05 06:16] LABS: BASOPHILS 0.6 % (0.0-2.0); EOSINOPHILS 2.7 % (0-7); HEMOGLOBIN 11.8 g/dL (13.5-17.5); IMMATURE GRANULOCYTES 0.4 % (0-5); LYMPHOCYTES 23.3 % (15-50); MCH 30.7 pg (26.0-34.0); MCHC 32.8 g/dL (31.0-37.0); MCV 93.8 fL (80.0-100.0); MEAN PLATELET VOLUME 10.2 fL (7.4-10.4); MONOCYTES 9.1 % (2-11); NEUTROPHILS 63.9 % (40-80); PLATELET COUNT 305 10x3/uL (130-400); RBC 3.84 10x6/uL (4.20-6.10); RDW 14.3 % (11.5-14.5)
[2016-06-05 06:56] LABS: CALC OSMOLALITY 281 mosm/kg (275-300); CALCIUM 8.5 mg/dL (8.5-10.1); CARBON DIOXIDE 31.7 mmol/L (21.0-32.0); CHLORIDE - SERUM 105 mmol/L (98-107); CREATININE - SERUM 0.9 mg/dL (0.6-1.3); GLUCOSE 95 mg/dL (74-106); POTASSIUM - SERUM 4.2 mmol/L (3.5-5.1); SODIUM 141 mmol/L (136-145); UREA NITROGEN 14 mg/dL (7-18); eGFR NON AFRICAN AMERICAN 87 mL/min (90-120)
[2016-06-05 07:14] LABS: INR 2.93 (0.85-1.17); PROTIME 30.8 SECONDS (11.6-15.0)
--- NOTE | 2016-06-05 07:26 | NUR ---
RESTING QUIETLY IN BED CALL LIGHT IN REACH
--- NOTE | 2016-06-05 07:57 | NUR ---
PATIENT TO BE DISCHARGED HOME TOMORROW. HAS INDEPENDANCE IN ROOM. WALKING WITH WHELLED WALKER AROUND ROOM AND INTO BATHROOM
[2016-06-05 08:00] VITALS: BP 123/70
--- NOTE | 2016-06-05 10:00 | NUR ---
PATIENT IN REHAB ROOM. WORKING WITH PHYSICAL THERAPIST. DENIES ANY PAIN/DISC AT THIS TIME.
--- NOTE | 2016-06-05 10:46 | NUR ---
PATIENT DISCHARGING HOME WITH SPOUSE ON 06/06/16. [facility] WILL RESUME CARE OF PATIENT WITH NURSING, PT, OT.PATIENT HAS WALKER AND CPM AT HOME, NO OTHER DME NEEDED AT THIS TIME. APPOINTMENTS: DR. CLEVELAND 06/14/16 @ 10:30, DR. BOND 07/07/16 @ 10:00. PATIENT EDUCATION ON WATCHING FOR SIGNS OF INFECTION ON INCISION SITE . PATIENT CHOICE FORM FOR HOME HEALTH AND IMFM FORM SIGNED , EXPLAINED AND FILED IN CHART. WILL CONTINUE TO FOLLOW WITH PATIENT UNTIL DISCHARGED.
--- NOTE | 2016-06-05 11:31 | NUR ---
PATIENT HAS DECIDED NOT TO USE [facility] AND WOULD LIKE TO USE [facility]. PATIENT CHOICE FORM HAS BEEN SIGNED AND FILED IN CHART
--- NOTE | 2016-06-05 15:14 | NUR ---
CPM REMOVED FROM LEFT LEG SO PATIENT COULD GO TO THE BATHROOM
--- NOTE | 2016-06-05 18:30 | NUR ---
THIS NURSE PUT CPM ON PATIENTS LEFT LEG
[2016-06-05 19:00] VITALS: BP 129/70
--- NOTE | 2016-06-05 20:00 | NUR ---
PT IS RESTING IN BED WITH EYES OPEN. CPM IS ON LEFT LEG AT THIS TIME. PT DENIES ACUTE DISCOMFORT. SR'S ARE UP X 2 IN BED. CALL LIGHT AND BEDSIDE TABLE ARE WITHIN EASY REACH.
--- NOTE | 2016-06-05 20:45 | NUR ---
PT NOTED UP IN BATHROOM INDEPENDENTLY. CPM STILL ON THE BED. PT STATED: " I JUST HAD TO PEE REALLY BAD, SO I UNHOOKED MYSELF AND WENT. CPM REMOVED FROM BED. PT ENCOURAGED NOT TO TRY THIS AGAIN FOR HIS SAFETY. VERBAL UNDERSTANDING VOICED.
--- NOTE | 2016-06-05 22:55 | NUR ---
RESTING QUIETLY IN BED WITH EYES CLOSED. RESPS ARE EVEN AND UNLABORED. NO ACUTE DISTRESS NOTED.
--- NOTE | 2016-06-06 01:30 | NUR ---
RESTING IN BED WITH EYES CLOSED.
--- NOTE | 2016-06-06 03:10 | NUR ---
RESTING IN BED, EYES CLOSED.
--- NOTE | 2016-06-06 05:51 | NUR ---
PT SITTING UP IN HIS ROOM WITH EYES OPEN. STATES: " I FINALLY MADE IT TO THIS DAY, IM GOING HOME." PT DENIES ANY NEEDS AT THIS TIME.
[2016-06-06 07:16] LABS: INR 2.95 (0.85-1.17)
--- NOTE | 2016-06-06 08:07 | NUR ---
ALERT/ORIENT X4. CALL LIGHT WITHIN REACH. HAS INDEPENDACE IN ROOM. DISCHARGE PLAN FOR HOME TODAY
[2016-06-06 08:18] VITALS: BP 132/67
--- NOTE | 2016-06-06 08:30 | NUR ---
DR. Lj HAIR INTO SEE PATIENT. NEW ORDERS RECEIVED FOR DISCHARGE TO HOME
--- NOTE | 2016-06-06 10:55 | NUR ---
HERE TO TAKE PATIENT HOME. DISCHARGE INSTRUCTIONS GONE OVER WITH PATIENT AND . MEDICATIONS PATIENT DOES NOT HAVE AT HOME CALLED INTO [facility]. PATIENT HELPED OUT TO CAR BY STAFF
--- NOTE | 2016-06-29 15:18 | DS ---
PATIENT:BENJI LAWSON :39 MEDICAL RECORD: [id number] DISCHARGE SUMMARY ADMISSION DATE: 05/22/16 DISCHARGE DATE: 06/06/16 This is a discharge dated 05/22/2016 from the inpatient hospital. DISCHARGE DIAGNOSES: 1. Paroxysmal atrial fibrillation. 2. Acute blood loss anemia. 3. Status post left total knee replacement. 4. Hypothyroidism. 5. Hypertension. CONSULTS THIS HOSPITALIZATION: Cardiology with Dr. Estrada. HOSPITAL COURSE: Full H&P is located elsewhere on the chart on this 80-year-old male, who was admitted with complaints of generalized weakness and was found in the ED to be in atrial fibrillation with rapid ventricular response. He had a recent left total knee replacement and had been off of blood thinners for a week prior to surgery. He was started on sotalol and metoprolol for rate control. Cardiology was consulted. He was seen by Dr. Estrada. He was on his Coumadin with monitoring of INRs. His rate was controlled. He was evaluated for inpatient rehab and accepted to that facility. He was considered medically stable for transfer on 05/22/2016. DISCHARGE MEDICATIONS: As per discharge medication reconciliation. DISCHARGE DISPOSITION: The patient is discharged to inpatient rehab for physical therapy for strengthening. He will continue his current diet and level of activity and follow with primary care in the rehab unit. We will follow with the specialists after discharge from rehabilitation. At least 30 minutes was spent in this discharge activity. TRANSINT:[id number] Voice Confirmation ID: [id number] DOCUMENT ID: [id number] Dictated By: JOSE ELIAS PANDEY I have interviewed/examined the above patient and agree with these documented findings. SISSY WILLIAMSON MD at 1346 at 1518 CC: [id number] DICTATION DATE: 06/23/16 1701 MEDICAL SUPPLY TECHNICIAN: 06/24/16 0545 DIS IN 06/06/16 [id number] [place] [address]
== END 2016-06-06 11:01 | disposition home health service (06) | DRG 560 ==
LOC: D.REHAB 16:59
PROVIDERS: ADMIT Emergency Medicine
DX: Z47.1 Aftercare following joint replacement surgery (principal); I97.89 Other postprocedural complications and disorders of the circulatory system, not elsewhere classified; D62 Acute posthemorrhagic anemia; I48.0 Paroxysmal atrial fibrillation; Z96.652 Presence of left artificial knee joint; E03.9 Hypothyroidism, unspecified; I10 Essential (primary) hypertension; R06.02 Shortness of breath; R42 Dizziness and giddiness; E86.0 Dehydration; E87.8 Other disorders of electrolyte and fluid balance, not elsewhere classified; B99.9 Unspecified infectious disease; Z91.81 History of falling; Y83.8 Other surgical procedures as the cause of abnormal reaction of the patient, or of later complication, without mention of misadventure at the time of the procedure

== ENCOUNTER 2018-01-17 13:06 | Inpatient (IN) | payer MEDICARE, OTHER ==
[~2018-01-17] VITALS: Ht 185.4 cm; Wt 102.1 kg
--- NOTE | ~2018-01-17 | MORECARE ---
CASE MANAGEMENT DISCHARGE SUMMARY PATIENT: BENJI LAWSON UNIT: [id number] ADM DATE: 01/17/18 AGE: 82 : 37 SEX: M ROOM/BED: D.2230 AUTHOR: NURIADOC PHYSICIAN: REFERRING PHYSICIAN: STEVIE THAKKAR MD DATE OF SERVICE: 01/19/18 Discharge Plan Patient Name: BENJI LAWSON Facility: [facility]:[place] : 1935 Planned Disposition: Home Anticipated Discharge Date: 01/19/18 Discharge Date: 01/19/2018 Expected LOS: 2 Initial Reviewer: [email or web address] Initial Review Date: 01/17/2018 Generated: 01/19/18 5:54 pm Comments DCP- Discharge Planning Updated by [id number]: Yulissa Day on 01/19/18 3:[address] LATE ENTRY 1045 PATIENT READY FOR DISCHARGE TO HOME WITH HIS , ZULMA . SHE IS PROVIDING TRANSPORTATION. PATIENT GAVE PERMISSION TO SPEAK WITH HIS BEING PRESENT. CM DISCUSSED DISCHARGE IMM. HE STATED HE UNDERSTOOD AND SIGNED DISCHARGE IMM FORM. COPY TO THE PATIENT AND COPY TO THE CHART. HE HAS NO DME. DOES NOT UTILIZE HOME HEALTH OR COMMUNITY SERVICES. DOES NOT FEEL HE NEEDS HOME HEALTH SERVICES AT THIS TIME. CM EXPLAINED HOW TO ACCESS H/H SERVICES POSTDISCHARGE SHOULD HE NEED IT. PCP- DR JOHNATHAN CLEVELAND IN [facility]- [facility] PLAN DENIES ANY NEEDS. DCPIA - Discharge Planning Initial Assessment Updated by [email or web address]: Yulissa Day on 01/19/18 4:41 pm * Is the patient Alert and Oriented? Yes * How many steps to enter\exit or inside your home? NONE * PCP DR JOHNATHAN MENDEZ IN [place] * [facility] * Preadmission Environment Home with Family * ADLs Independent * Equipment None * Other Equipment DENIES ANY DME * List name and contact numbers for known caregivers / representatives who currently or will assist patient after discharge: ZULMA LAWSON- - [phone] * Verbal permission to speak to the caregivers and representatives has been obtained from the patient. Yes * Community resources currently utilized None * Please name any agencies selected above. N/A * Additional services required to return to the preadmission environment? No * Can the patient safely return to the preadmission environment? Yes * Has this patient been hospitalized within the prior 30 days at any hospital? No Coverage Notice Reviewer: [id number] Cecilio Day Notice Issued Date-Time: 01/19/2018 11:00 Notice Type: IM Discharge Notice Notice Delivered To: Patient Relationship to Patient: Solution Manager Name: Delivery Method: - Sandy Days: Prior Verbal Notification: Recipient Understood Notice: Recipient Signature: Med Rec Note Co-signed by Attending: Coverage Notice Comment: Last DP export: 01/19/18 3:46 Patient Name: BENJI LAWSON Page [id number] at 1654 All edits/amendments must be made on the electronic document DICTATION DATE: 01/19/181652 FIFTH GRADE TEACHER: BIJU 01/19/181652 RPT#: [id number] DC DATE:01/19/18 STATUS: DIS IN [facility] [address] [place] [address] END OF REPORT
--- NOTE | ~2018-01-17 | MORECARE ---
CASE MANAGEMENT DISCHARGE SUMMARY PATIENT: BENJI LAWSON UNIT: [id number] ADM DATE: 01/17/18 AGE: 82 : 37 SEX: M ROOM/BED: D.2230 AUTHOR: HOMERO QUIÑONES PHYSICIAN: REFERRING PHYSICIAN: STEVIE THAKKAR MD DATE OF SERVICE: 01/19/18 Discharge Plan Patient Name: BENJI LAWSON Facility: [facility]:[place] : 1935 Planned Disposition: Home Anticipated Discharge Date: 01/19/18 Discharge Date: 01/19/2018 Expected LOS: 2 Initial Reviewer: [email or web address] Initial Review Date: 01/17/2018 Generated: 01/19/18 5:40 pm Patient Name: BENJI LAWSON Page [phone] at 1640 All edits/amendments must be made on the electronic document DICTATION DATE: 01/19/18 [facility] SUPERVISOR FUR FLOOR WORKER: BIJU 01/19/18 [facility] RPT#: [id number] DC DATE:01/19/18 STATUS: DIS IN [facility] [address] [place] [address] END OF REPORT
--- NOTE | ~2018-01-17 | MORECARE ---
CASE MANAGEMENT DISCHARGE SUMMARY PATIENT: BENJI LAWSON UNIT: [id number] ADM DATE: 01/17/18 AGE: 82 : 37 SEX: M ROOM/BED: D.2230 AUTHOR: HOMERO QUIÑONES PHYSICIAN: REFERRING PHYSICIAN: STEVIE THAKKAR MD DATE OF SERVICE: 01/19/18 Discharge Plan Patient Name: BENJI LAWSON Facility: [facility]:[place] : 1935 Planned Disposition: Home Anticipated Discharge Date: 01/19/18 Discharge Date: 01/19/2018 Expected LOS: 2 Initial Reviewer: [email or web address] Initial Review Date: 01/17/2018 Generated: 01/19/18 5:46 pm DCPIA - Discharge Planning Initial Assessment Updated by [email or web address]: Yulissa Day on 01/19/18 4:41 pm * Is the patient Alert and Oriented? Yes * How many steps to enter\exit or inside your home? NONE * PCP DR JOHNATHAN MENDEZ IN [place] * Pharmacy [facility] * Preadmission Environment Home with Family * ADLs Independent * Equipment None * Other Equipment DENIES ANY DME * List name and contact numbers for known caregivers / representatives who currently or will assist patient after discharge: ZULMA LAWSON- - [phone] * Verbal permission to speak to the caregivers and representatives has been obtained from the patient. Yes * Community resources currently utilized None * Please name any agencies selected above. N/A * Additional services required to return to the preadmission environment? No * Can the patient safely return to the preadmission environment? Yes * Has this patient been hospitalized within the prior 30 days at any hospital? No Last DP export: 01/19/18 3:40 Patient Name: BENJI LAWSON Page [id number] at 1647 All edits/amendments must be made on the electronic document DICTATION DATE: 01/19/181645 GAS COMBUSTION ENGINEER: BIJU 01/19/181645 RPT#: [id number] DC DATE:01/19/18 STATUS: DIS IN [facility] [address] [place] [address] END OF REPORT
--- NOTE | ~2018-01-17 | MORECARE ---
CASE MANAGEMENT DISCHARGE SUMMARY PATIENT: BENJI LAWSON UNIT: [id number] ADM DATE: 01/17/18 AGE: 82 : 37 SEX: M ROOM/BED: D.2230 AUTHOR: HOMERO QUIÑONES PHYSICIAN: REFERRING PHYSICIAN: STEVIE THAKKAR MD DATE OF SERVICE: 01/21/18 Discharge Plan Patient Name: BENJI LAWSON Facility: [facility]:[place] : 1935 Planned Disposition: Home Anticipated Discharge Date: 01/19/18 Discharge Date: 01/19/2018 Expected LOS: 2 Initial Reviewer: [email or web address] Initial Review Date: 01/17/2018 Generated: 01/21/18 2:48 pm Comments DCP- Discharge Planning Updated by [email or web address]: Yulissa Day on 01/19/18 3:[address] LATE ENTRY 1045 PATIENT READY FOR DISCHARGE TO HOME WITH HIS , ZULMA . SHE IS PROVIDING TRANSPORTATION. PATIENT GAVE PERMISSION TO SPEAK WITH HIS BEING PRESENT. CM DISCUSSED DISCHARGE IMM. HE STATED HE UNDERSTOOD AND SIGNED DISCHARGE IMM FORM. COPY TO THE PATIENT AND COPY TO THE CHART. HE HAS NO DME. DOES NOT UTILIZE HOME HEALTH OR COMMUNITY SERVICES. DOES NOT FEEL HE NEEDS HOME HEALTH SERVICES AT THIS TIME. CM EXPLAINED HOW TO ACCESS H/H SERVICES POSTDISCHARGE SHOULD HE NEED IT. PCP- DR JOHNATHAN CLEVELAND IN [facility]- [facility] PLAN DENIES ANY NEEDS. DCPIA - Discharge Planning Initial Assessment Updated by [email or web address]: Yulissa Day on 01/19/18 4:41 pm * Is the patient Alert and Oriented? Yes * How many steps to enter\exit or inside your home? NONE * PCP DR JOHNATHAN MENDEZ IN [place] * [facility] * Preadmission Environment Home with Family * ADLs Independent * Equipment None * Other Equipment DENIES ANY DME * List name and contact numbers for known caregivers / representatives who currently or will assist patient after discharge: ZULMA LAWSON- - [phone] * Verbal permission to speak to the caregivers and representatives has been obtained from the patient. Yes * Community resources currently utilized None * Please name any agencies selected above. N/A * Additional services required to return to the preadmission environment? No * Can the patient safely return to the preadmission environment? Yes * Has this patient been hospitalized within the prior 30 days at any hospital? No Coverage Notice Reviewer: [email or web address] Cecilio Day Notice Issued Date-Time: 01/19/2018 11:00 Notice Type: IM Discharge Notice Notice Delivered To: Patient Relationship to Patient: District Medical Examiner Name: Delivery Method: HAND - Hand Delivered Sandy Days: Prior Verbal Notification: Recipient Understood Notice: Yes Recipient Signature: Yes Med Rec Note Co-signed by Attending: Coverage Notice Comment: DISCUSSED DISCHARGE IMM. PATIENT SAID HE UNDERSTOOD. DISCHARGE IMM FORM SIGNED NO QUESTIONS NO CONCERNS. COPY TO THE PATIENT. SIGNED COPY TO HARD CHART. Last DP export: 01/19/18 3:54 Patient Name: BENJI LAWSON Page [phone] at 1348 All edits/amendments must be made on the electronic document DICTATION DATE: 01/21/187 SUPERVISOR AIRPLANE FLIGHT ATTENDANT: BIJU 01/21/18 1347 RPT#: [id number] DC DATE:01/19/18 STATUS: DIS IN [facility] [address] [place] [address] END OF REPORT
[2018-01-17] MEDS ORDERED: ALBUTEROL SULF8.5 GM INH (13:15)
[2018-01-17] MEDS ORDERED: DIPROLENE 0.05%50 GM TOPICAL (13:18)
[2018-01-17] MEDS ORDERED: OXYBUTYNIN CHLOR5 MG PO (13:19)
[2018-01-17] MEDS ORDERED: VITAMIN D31000 UNIT PO (13:19)
[2018-01-17 13:53] LABS: BASOPHILS 0.2 % (0-2); HEMATOCRIT 42.5 % (42.0-54.0); HEMOGLOBIN 14.5 g/dL (13.5-17.5); IMMATURE GRANULOCYTES 0.2 % (0-5); LYMPHOCYTES 27.3 % (15-50); MCH 31.5 pg (26.0-34.0); MCHC 34.1 g/dL (31.0-37.0); MCV 92.2 fL (80.0-100.0); MEAN PLATELET VOLUME 10.5 fL (7.4-10.4); MONOCYTES 4.8 % (2-11); NEUTROPHILS 66.5 % (40-80); RBC 4.61 10x6/uL (4.20-6.10); RDW 14.6 % (11.5-14.5); WBC 11.1 10x3/uL (4.8-10.8)
[2018-01-17 13:59] LABS: PLATELET COUNT 192 10x3/uL (130-400)
[2018-01-17 14:07] LABS: ALBUMIN 3.6 g/dL (3.4-5.0); ALKALINE PHOSPHATASE 84 U/L (46-116); ALT (SGPT) 21 U/L (10-68); AMYLASE - SERUM 70 U/L (25-115); BILIRUBIN - TOTAL 0.41 mg/dL (0.2-1.3); CALC OSMOLALITY 279 mosm/kg (275-300); CARBON DIOXIDE 27.2 mmol/L (21.0-32.0); CHLORIDE - SERUM 101 mmol/L (98-107); GLUCOSE 123 mg/dL (74-106); LIPASE 132 U/L (73-393); POTASSIUM - SERUM 4.1 mmol/L (3.5-5.1); PROTEIN - SERUM 6.7 g/dL (6.4-8.2); SODIUM 139 mmol/L (136-145); UREA NITROGEN 14 mg/dL (7-18); eGFR NON AFRICAN AMERICAN 76 mL/min (90-120)
[2018-01-17 14:44] LABS: APPEARANCE CLEAR (CLEAR); BILIRUBIN NEGATIVE (NEGATIVE); COLOR YELLOW (YELLOW); GLUCOSE NEGATIVE (NEGATIVE); KETONE MODERATE mg/dL (NEGATIVE); NITRITE NEGATIVE (NEGATIVE); PROTEIN NEGATIVE (NEGATIVE); SPECIFIC GRAVITY 1.015 (1.005-1.020)
[2018-01-17 14:46] LABS: EPITHELIAL CELLS 0-5 /hpf (0-5); RED CELLS - URINE 0-5 /hpf (0-5); WHITE CELLS - URINE 0-5 /hpf (0-5)
[2018-01-17 14:47] LABS: BACTERIA FEW /hpf (NONE SEEN)
[2018-01-17] MEDS ORDERED: COUMADIN2.5 MG PO (18:17)
[2018-01-17 18:58] VITALS: BP 136/91; BMI 29.7
[2018-01-17 21:37] VITALS: BP 136/69
[2018-01-18] VITALS (13 sets, daily range): BP systolic 126–159; BP diastolic 60–91; Ht 185.4 cm; Wt 102.1 kg
[2018-01-18 05:05] LABS: BASOPHILS 0.2 % (0-2); EOSINOPHILS 1.9 % (0-7); HEMOGLOBIN 12.7 g/dL (13.5-17.5); IMMATURE GRANULOCYTES 0.3 % (0-5); LYMPHOCYTES 43.5 % (15-50); MCH 30.9 pg (26.0-34.0); MCHC 33.4 g/dL (31.0-37.0); MCV 92.5 fL (80.0-100.0); MEAN PLATELET VOLUME 10.9 fL (7.4-10.4); MONOCYTES 7.2 % (2-11); NEUTROPHILS 46.9 % (40-80); PLATELET COUNT 183 10x3/uL (130-400); RBC 4.11 10x6/uL (4.20-6.10); RDW 14.8 % (11.5-14.5); WBC 9.4 10x3/uL (4.8-10.8)
[2018-01-18 05:22] LABS: APTT 46.5 SECONDS (22.8-39.4); INR 1.67 (0.85-1.17); PROTIME 19.2 SECONDS (11.6-15.0)
[2018-01-18] MEDS ORDERED: HYDROCODON-ACE1 EAC7 PO (12:20)
[2018-01-18] MEDS ORDERED: FUROSEMIDE20 MG PO (12:20)
[2018-01-18] MEDS ORDERED: FLOMAX0.4 MG PO (12:21)
[2018-01-19 00:51] VITALS: BP 103/56
[2018-01-19 05:09] VITALS: BP 134/76
[2018-01-19 12:49] VITALS: BP 140/80
== END 2018-01-19 12:40 | disposition home or self-care (01) | DRG 352 ==
LOC: D.ER 13:06 → D.MS 16:42 → D.EDHOLD 16:42 → D.MS 17:18
PROVIDERS: Family Medicine; Surgery
PROC: 0YUA4JZ Supplement Bilateral Inguinal Region with Synthetic Substitute, Percutaneous Endoscopic Approach (ICD-10-PCS; principal; 2018-01-18 12:00)
DX: K40.20 Bilateral inguinal hernia, without obstruction or gangrene, not specified as recurrent (principal); I48.91 Unspecified atrial fibrillation; Z79.01 Long term (current) use of anticoagulants; I10 Essential (primary) hypertension; K21.9 Gastro-esophageal reflux disease without esophagitis